=== PATIENT | female | born 1995 | race Two or more races ===

== ENCOUNTER 2025-03-24 12:19 | Emergency (ER) | payer MEDICAID, OTHER ==
[~2025-03-24] VITALS: Ht 154.9 cm; Wt 93.9 kg
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
[2025-03-24 16:55] VITALS: BP 114/73; PULSE 65; RESP 18; TEMP 98.2; O2SAT 100
== END 2025-03-24 18:45 | disposition home or self-care (01) ==
LOC: ER 12:19
DX: R68.84 Jaw pain (principal); R51.9 Headache, unspecified; Z79.899 Other long term (current) drug therapy; V89.2XXA Person injured in unspecified motor-vehicle accident, traffic, initial encounter; Y93.89 Activity, other specified; Y92.410 Unspecified street and highway as the place of occurrence of the external cause; Y99.8 Other external cause status
CPT/HCPCS: 70450; 71045; 73562